=== PATIENT | female | born 1990 | race Caucasian/White ===

== ENCOUNTER 2021-09-13 22:45 | Inpatient (IN) | payer BC ==
[~2021-09-13] VITALS: Ht 154.9 cm; Wt 67.0 kg
--- NOTE | 2021-09-14 00:05 | NUR ---
Received report from JUSTICE Campbell. Awaiting patient arrival to the floor.
[2021-09-14 02:10] VITALS: BP 133/76
--- NOTE | 2021-09-14 02:15 | NUR ---
Patient arrived to the floor via gurney accompanied by EMT. Placed in room 355B. Patient awake and alert on room air, in no apparent distress. Call light and items of frequent use within reach. Will continue to monitor.
[2021-09-14] MEDS ORDERED: NO HOME MEDS (02:44)
[2021-09-14] MEDS ORDERED: ondansetron 4mg rapidly disintigrating tab PO PRN (03:35)
[2021-09-14] MEDS ORDERED: potassium CL 10mEq/100ml bag 100 ML IV PRN (03:35)
[2021-09-14] MEDS ORDERED: potassium Cl 20 mEq SR tablet PO PRN ×2 (03:35)
[2021-09-14] MEDS ORDERED: acetaminophen 325mg tablet PO PRN ×2 (03:35)
[2021-09-14] MEDS ORDERED: magnesium 2GM in 50ml NS 50 ML IV PRN (03:35)
[2021-09-14] MEDS ORDERED: HYDROmorphone/PF 0.2 MG/ML SYRINGE IV PRN (03:35)
[2021-09-14] MEDS ORDERED: HYDROcodone/acetaminophen 10/325mg tab PO PRN (03:35)
[2021-09-14] MEDS ORDERED: acetaminophen 650mg rectal suppository RC PRN (03:35)
[2021-09-14] MEDS ORDERED: bisacodyl 10mg suppository rectal RC PRN (03:35)
[2021-09-14] MEDS ORDERED: magnesium 4gm in 100ml NS 100 ML IV PRN (03:35)
[2021-09-14] MEDS ORDERED: morphine 2 MG/ML inj. syringe IV PRN (03:35)
[2021-09-14] MEDS ORDERED: magnesium Cl slow-release 64mg tablet PO PRN (03:35)
[2021-09-14] MEDS ORDERED: mag hydrox/Alum hydrox/simeth 30ml oral suspension PO PRN (03:35)
[2021-09-14] MEDS ORDERED: HYDROcodone/acetaminophen 5mg/325mg tablet PO PRN (03:35)
[2021-09-14] MEDS ORDERED: diphenhydrAMINE 50 mg/ml inj IV PRN (03:35)
[2021-09-14] MEDS ORDERED: HYDROmorphone inj. 0.5 MG/0.5 ML DISP.SYRIN IV PRN (03:35)
[2021-09-14] MEDS ORDERED: magnesium hydroxide 30ml (MOM) UD suspension PO PRN (03:35)
[2021-09-14] MEDS ORDERED: diphenhydrAMINE 25mg capsule PO PRN (03:35)
[2021-09-14] MEDS: metoclopramide 5 mg/ml inj IV PRN ×5 (04:12→22:23)
[2021-09-14] MEDS: normal saline 1000ml 1,000 ML IV SCH ×4 (04:12→23:35)
--- NOTE | 2021-09-14 06:29 | NUR ---
Patient in room [facility]. I have received report from Elissa RENDON and had the opportunity to ask questions and assume patient care.
[2021-09-14 06:41] LABS: PARTIAL THROMBOPLASTIN TIME 30 SECONDS (22-32)
--- NOTE | 2021-09-14 06:45 | NUR ---
Problems reprioritized. Patient report given, questions answered & plan of care reviewed with JUSTICE Campbell.
--- NOTE | 2021-09-14 06:47 | NUR ---
Student documentation: I have reviewed and agree with all interventions, assessments performed and documented by Estevan Student Nurse.
[2021-09-14 07:01] LABS: MAGNESIUM 2.1 MG/DL (1.5-2.4); PHOSPHORUS 3.5 MG/DL (2.3-4.5); POTASSIUM 3.7 MMOL/L (3.5-5.1)
[2021-09-14 07:15] VITALS: BP 140/90
[2021-09-14] MEDS: docusate sod 100mg capsule PO SCH ×2 (08:00→19:56)
[2021-09-14] MEDS: K and/or MAG REPLACEMENT MC SCH ×2 (08:00→19:36)
[2021-09-14] MEDS: piperacillin/tazo 3.375gm/50ml 50 ML IV SCH ×3 (08:46→23:31)
[2021-09-14 09:32] LABS: BASOPHILS % (AUTO) 0.2 % (0-1); EOSINOPHILS % (AUTO) 0 % (0-6); HEMATOCRIT 40.3 % (42.0-52.0); HEMOGLOBIN 13.9 g/dl (14.0-17.9); LYMPHOCYTES # (AUTO) 0.8 X10'3 (1.1-4.8); LYMPHOCYTES % (AUTO) 3.4 % (21-51); MEAN CORPUSCULAR HEMOGLOBIN 30.2 PG (27.0-31.0); MEAN CORPUSCULAR HGB CONC 34.6 g/dL (33.0-36.5); MEAN CORPUSCULAR VOLUME 87.2 FL (78-98); MEAN PLATELET VOLUME 7.5 FL (7.4-10.4); MONOCYTES # (AUTO) 1.1 X10'3 (0-0.9); NEUTROPHILS # (AUTO) 20.7 X10'3 (1.8-7.7); NEUTROPHILS % (AUTO) 91.4 % (42-75); PLATELET COUNT 432 X10'3 (140-440); RED BLOOD COUNT 4.62 X10'6 (4.70-6.10); RED CELL DISTRIBUTION WIDTH 13.1 % (11.5-14.5); WHITE BLOOD COUNT 22.7 X10'3 (4.5-11.0)
[2021-09-14 10:05] LABS: ASPARTATE AMINO TRANSFERASE 369 U/L (10-37); BILIRUBIN,TOTAL 3.1 MG/DL (0.1-1.0); BLOOD UREA NITROGEN 11 MG/DL (7-18); BUN/CREATININE RATIO 16.7 (5.4-32.0); CALCIUM 9.3 MG/DL (8.5-10.1); CHLORIDE 100 MMOL/L (99-107); CREATININE 0.66 MG/DL (0.60-1.10); GLUCOSE 135 MG/DL (70-104); POTASSIUM 3.8 MMOL/L (3.5-5.1); TOTAL CARBON DIOXIDE 25.3 MMOL/L (24-32); eGFR > 90 ML/MIN
[2021-09-14] MEDS: pantoprazole IV 40 MG in normal saline 100ml IV soln 100 ML IV SCH (10:07)
[2021-09-14 10:10] LABS: ANION GAP 12 (8-16); SODIUM 137 MMOL/L (135-145)
[2021-09-14 10:24] LABS: HYPERSEGMENTED NEUTROPHILS 1+; PLATELET ESTIMATE NORMAL; TOTAL CELLS COUNTED 100; TOXIC GRANULATION 1+
[2021-09-14 11:06] LABS: ALANINE AMINOTRANSFERASE 379 U/L (12-78); ALBUMIN 3.7 G/DL (3.4-5.0); ALBUMIN/GLOBULIN RATIO 0.7 (1.1-1.5); ALKALINE PHOSPHATASE 384 IU/L (46-116); TOTAL PROTEIN 8.8 G/DL (6.4-8.2)
--- NOTE | 2021-09-14 11:13 | NUR ---
PAGER ID: [phone] MESSAGE: [id number] LFT: AST 369 ALT 379 Total Bili 3.1 Shannan [id number]
--- NOTE | 2021-09-14 13:13 | NUR ---
Per Dr. Saab, ERCP will be done tomorrow. IR notified and said they will try to squeeze patient in for IR today, if not it will be held until tomorrow. Patient and family at bedside notified.
--- NOTE | 2021-09-14 13:45 | NUR ---
Per IR, patient will not be having IR drainage. Dr. Pulido will be informing Dr. Saab. Patient and family at bedside informed.
--- NOTE | 2021-09-14 14:35 | NUR ---
Per GI, patient will be having ERCP some time after 1400 on 09/15/21/
[2021-09-14] MEDS: morphine 2 MG/ML inj. syringe IV PRN ×2 (17:03→22:22)
--- NOTE | 2021-09-14 17:38 | NUR ---
VSS. Reports nausea, reaglan given, but patient still had small episode of emesis. Reported moderate pain in medial back, 1mg of morphine given. Plan of care reviewed with patient. Call light placed within reach. Hourly rounds continued. Safety maintained.
--- NOTE | 2021-09-14 18:20 | NUR ---
Patient in room [facility]. I have received report from Shannan RENDON and Marley RENDON and had the opportunity to ask questions and assume patient care.
[2021-09-14 18:30] VITALS: BP 129/78
[2021-09-14] MEDS: lactobacillus rhamnosus 10,000 MMU CELLS/CAPSULE PO SCH (19:56)
[2021-09-14] MEDS ORDERED: temazepam 15mg capsule PO PRN (21:00)
[2021-09-14 23:41] VITALS: BP 131/82
[2021-09-14] MEDS: ondansetron/PF 4mg/2ml inj IV PRN (23:44)
[2021-09-15] VITALS (15 sets, daily range): BP systolic 119–173; BP diastolic 77–110
[2021-09-15 02:06] LABS: CLARITY,URINE CLEAR (Clear); COLOR,URINE YELLOW (Yellow); GLUCOSE, URINE NEGATIVE (Neg); KETONES,URINE TRACE mg/dl (Neg); LEUKOCYTE ESTERASE ,URINE NEGATIVE (Neg); NITRITES, URINE NEGATIVE (Neg); OCCULT BLOOD,URINE NEGATIVE (Neg); PROTEIN,URINE NEGATIVE (Neg)
[2021-09-15 02:13] LABS: UA COLLECTION TYPE CLN CATCH MIDSTREAM
[2021-09-15] MEDS: normal saline 1000ml 1,000 ML IV SCH ×3 (02:19→19:20)
[2021-09-15] MEDS: morphine 2 MG/ML inj. syringe IV PRN (02:25)
[2021-09-15] MEDS: metoclopramide 5 mg/ml inj IV PRN ×2 (03:22→11:36)
[2021-09-15] MEDS ORDERED: morphine 2 MG/ML inj. syringe IV ONE (03:30)
[2021-09-15 06:06] LABS: BASOPHILS % (AUTO) 0.2 % (0-1); EOSINOPHILS % (AUTO) 0.3 % (0-6); HEMATOCRIT 35.3 % (35.0-45.0); HEMOGLOBIN 12.3 g/dl (12.0-16.0); MEAN CORPUSCULAR HEMOGLOBIN 30.6 PG (27.0-31.0); MEAN CORPUSCULAR HGB CONC 34.7 g/dL (33.0-36.5); MEAN CORPUSCULAR VOLUME 88.1 FL (78-98); MEAN PLATELET VOLUME 7.5 FL (7.4-10.4); MONOCYTES # (AUTO) 0.7 X10'3 (0-0.9); MONOCYTES % (AUTO) 5.1 % (2-12); NEUTROPHILS # (AUTO) 12.2 X10'3 (1.8-7.7); NEUTROPHILS % (AUTO) 87.4 % (42-75); PLATELET COUNT 365 X10'3 (140-440); RED BLOOD COUNT 4.01 X10'6 (4.20-5.60); RED CELL DISTRIBUTION WIDTH 13.1 % (11.5-14.5); WHITE BLOOD COUNT 13.9 X10'3 (4.5-11.0)
--- NOTE | 2021-09-15 06:15 | NUR ---
Problems reprioritized. Patient report given, questions answered & plan of care reviewed with Monik RENDON.
[2021-09-15 06:44] LABS: ALANINE AMINOTRANSFERASE 398 U/L (12-78); ALBUMIN/GLOBULIN RATIO 0.7 (1.1-1.5); ALKALINE PHOSPHATASE 378 IU/L (46-116); ANION GAP 12 (8-16); ASPARTATE AMINO TRANSFERASE 248 U/L (10-37); BILIRUBIN,TOTAL 1.1 MG/DL (0.1-1.0); BLOOD UREA NITROGEN 11 MG/DL (7-18); BUN/CREATININE RATIO 16.4 (6.6-38.0); CALCIUM 8.9 MG/DL (8.5-10.1); CHLORIDE 107 MMOL/L (99-107); CREATININE 0.67 MG/DL (0.40-0.90); GLUCOSE 106 MG/DL (70-104); POTASSIUM 3.8 MMOL/L (3.5-5.1); SODIUM 142 MMOL/L (135-145); TOTAL CARBON DIOXIDE 23.5 MMOL/L (24-32); TOTAL PROTEIN 7.4 G/DL (6.4-8.2); eGFR > 90 ML/MIN
[2021-09-15] MEDS: lactobacillus rhamnosus 10,000 MMU CELLS/CAPSULE PO SCH ×2 (08:00→19:51)
[2021-09-15] MEDS: docusate sod 100mg capsule PO SCH ×2 (08:00→19:51)
[2021-09-15] MEDS: piperacillin/tazo 3.375gm/50ml 50 ML IV SCH ×2 (08:13→18:29)
[2021-09-15] MEDS: pantoprazole IV 40 MG in normal saline 100ml IV soln 100 ML IV SCH (08:14)
[2021-09-15] MEDS: K and/or MAG REPLACEMENT MC SCH ×2 (08:15→19:51)
[2021-09-15] MEDS: ondansetron/PF 4mg/2ml inj IV PRN (10:24)
[2021-09-15 10:45] LABS: LIPASE 130 U/L (73-393)
[2021-09-15] MEDS ORDERED: fentaNYL/PF 50MCG/1 ML 2ML syringe ONE (13:43)
[2021-09-15] MEDS ORDERED: glucagon, human recombinant 1mg kit ONE (13:43)
[2021-09-15] MEDS ORDERED: iohexol 300 MG/1 ML 50ml polymer ONE (13:43)
[2021-09-15] MEDS ORDERED: MIDAZolam 1 MG/ML 5ML VIAL ONE (13:43)
[2021-09-15] MEDS ORDERED: LIDOcaine Viscous 15ml cup ONE (13:43)
[2021-09-15] MEDS ORDERED: diphenhydrAMINE 50 mg/ml inj ONE (13:50)
--- NOTE | 2021-09-15 18:15 | NUR ---
Patient in room [facility]. I have received report from Monik RENDON and had the opportunity to ask questions and assume patient care.
[2021-09-16] VITALS: BP 131/81
[2021-09-16] MEDS: normal saline 1000ml 1,000 ML IV SCH ×2 (01:01→07:45)
[2021-09-16] MEDS: piperacillin/tazo 3.375gm/50ml 50 ML IV SCH ×2 (01:01→07:36)
--- NOTE | 2021-09-16 06:15 | NUR ---
Problems reprioritized. Patient report given, questions answered & plan of care reviewed with Monik RENDON.
[2021-09-16 06:59] LABS: ALANINE AMINOTRANSFERASE 243 U/L (12-78); ALBUMIN 2.9 G/DL (3.4-5.0); ALBUMIN/GLOBULIN RATIO 0.7 (1.1-1.5); ALKALINE PHOSPHATASE 304 IU/L (46-116); ANION GAP 9 (8-16); ASPARTATE AMINO TRANSFERASE 50 U/L (10-37); BILIRUBIN,TOTAL 0.8 MG/DL (0.1-1.0); BLOOD UREA NITROGEN 8 MG/DL (7-18); BUN/CREATININE RATIO 10.8 (6.6-38.0); CALCIUM 8.9 MG/DL (8.5-10.1); CHLORIDE 108 MMOL/L (99-107); CREATININE 0.74 MG/DL (0.40-0.90); GLUCOSE 103 MG/DL (70-104); POTASSIUM 3.4 MMOL/L (3.5-5.1); SODIUM 141 MMOL/L (135-145); TOTAL CARBON DIOXIDE 24.2 MMOL/L (24-32); TOTAL PROTEIN 7.1 G/DL (6.4-8.2); eGFR > 90 ML/MIN
[2021-09-16 07:23] LABS: BASOPHILS % (AUTO) 0.4 % (0-1); EOSINOPHILS # (AUTO) 0.2 X10'3 (0-0.9); HEMATOCRIT 36.8 % (35.0-45.0); HEMOGLOBIN 12.7 g/dl (12.0-16.0); LYMPHOCYTES # (AUTO) 2.1 X10'3 (1.1-4.8); LYMPHOCYTES % (AUTO) 20.3 % (21-51); MEAN CORPUSCULAR HEMOGLOBIN 30.2 PG (27.0-31.0); MEAN CORPUSCULAR HGB CONC 34.4 g/dL (33.0-36.5); MEAN CORPUSCULAR VOLUME 87.8 FL (78-98); MEAN PLATELET VOLUME 7.7 FL (7.4-10.4); MONOCYTES # (AUTO) 0.7 X10'3 (0-0.9); MONOCYTES % (AUTO) 6.6 % (2-12); NEUTROPHILS # (AUTO) 7.5 X10'3 (1.8-7.7); NEUTROPHILS % (AUTO) 70.7 % (42-75); PLATELET COUNT 377 X10'3 (140-440); RED BLOOD COUNT 4.19 X10'6 (4.20-5.60); RED CELL DISTRIBUTION WIDTH 13.2 % (11.5-14.5); WHITE BLOOD COUNT 10.6 X10'3 (4.5-11.0)
[2021-09-16] MEDS: pantoprazole IV 40 MG in normal saline 100ml IV soln 100 ML IV SCH (07:36)
[2021-09-16] MEDS: lactobacillus rhamnosus 10,000 MMU CELLS/CAPSULE PO SCH (07:38)
[2021-09-16] MEDS: docusate sod 100mg capsule PO SCH (07:38)
[2021-09-16] MEDS: K and/or MAG REPLACEMENT MC SCH (07:45)
[2021-09-16 08:00] VITALS: BP 140/90
[2021-09-16] MEDS ORDERED: AMOX-422 PO (10:54)
== END 2021-09-16 11:45 | disposition home or self-care (01) | DRG 446 ==
LOC: UNDOADMIN 22:45 → SUR 3N 22:45 → EDSEX 09-14 03:40
PROVIDERS: ADMIT Family Medicine; ATTEND Family Medicine
PROC: 0FC98ZZ Extirpation of Matter from Common Bile Duct, Via Natural or Artificial Opening Endoscopic (ICD-10-PCS; principal; 2021-09-15)
PROC: 0F798DZ Dilation of Common Bile Duct with Intraluminal Device, Via Natural or Artificial Opening Endoscopic (ICD-10-PCS; 2021-09-15)
PROC: BF101ZZ Fluoroscopy of Bile Ducts using Low Osmolar Contrast (ICD-10-PCS; 2021-09-15)
DX: K80.33 Calculus of bile duct with acute cholangitis with obstruction (principal); D75.839 Thrombocytosis, unspecified; E86.0 Dehydration; R74.01 Elevation of levels of liver transaminase levels; K76.89 Other specified diseases of liver; K44.9 Diaphragmatic hernia without obstruction or gangrene; Z90.49 Acquired absence of other specified parts of digestive tract; Z88.2 Allergy status to sulfonamides
CPT/HCPCS: 36415; 43264; 43274; 71045; 80053; 81003; 83605; 83690; 83735; 83880; 84100; 84132; 85007; 85025; 85610; 85730; 87040; 87081; 99152; 99153; A4620; C1769; C2625; C9113; G0378; J1200; J1610; J2250; J2270; J2405; J2543; J2765; J3010; J3490; J7030; J7040; Q9967